=== PATIENT | female | born 2000 | race Caucasian/White ===

== ENCOUNTER 2022-10-07 22:10 | Emergency (ER) | payer OTHER, SELFPAY ==
[2022-10-07 22:24] VITALS: BP 107/66; PULSE 87; RESP 18; TEMP 37.4; O2SAT 97; BMI 34.3
--- NOTE | 2022-10-07 22:56 | PC.NURSE ---
pt presents to [facility] pt states that last week she had a kidney infection and was placed on antibiotics. antibiotics finished and no longer having any urinary symptoms. pt states that over the last 2 days c/o nausea and generalized abdominal pain. pt states she went to [facility] last night and had blood testing done and it was normal and was sent home. pt states pain never went away so she went back this morning they did blood work and ct. ct showed possible colon infection and fluid around ovary so they did an ultrasound and it showed fluid but they weren't able to determine what it was from. pt was given gi cocktail, zofran, and bentyl for symptoms during er visit. pt states she told the doc at [facility] her throat was sore and swollen and was concerned for allergic reaction and was told to take benadryl. sent home with bentyl and zofran but hasn't picked up prescriptions.
--- NOTE | 2022-10-07 23:16 | ED_ITS ---
HPI - Abdominal Pain General Chief Complaint: Abdominal Pain Stated Complaint: ABDOMINAL PAIN, NECK PAIN Time Seen by Provider: 10/07/22 22:57 Source: patient and family Mode of arrival: walk-in Limitations: no limitations History of Present Illness HPI narrative: seen at [facility] yesterday for abdominal pain. Seen twice. States first time she was given GI cocktail. At home felt like her throat was swelling and her legs were itching. [place] she was having an allergic reaction and took benadryl. throat and itcing resolved. Seen again for abdominal pain and CT and pelvis ultrasound performed. CT demonstrated pelvic fluid and US demonstrated normal ovaries and small fluid in the d[place]. advised to follow up with her doctor now presents here for continued abdominal pain and also her neck is sore. States she woke up with sore neck. no fever Related Data Home Medications Medication Instructions Recorded Confirmed dicyclomine 20 mg tablet mg 10/07/22 ondansetron 4 mg disintegrating mg 10/07/22 tablet Allergies Allergy/AdvReac Type Severity Reaction Status Date / Time amoxicillin [From Augmentin] Allergy Unknown Verified 10/07/22 22:24 clavulanic acid Allergy Unknown Verified 10/07/22 22:24 [From Augmentin] doxycycline Allergy Unknown Verified 10/07/22 22:24 Review of Systems ROS Status of ROS 10 or more systems reviewed and unremarkable except as noted in history and below [facility] Social History Smoking status: Current every day smoker Exam Constitutional Vital Signs, click to edit/add: Last Vital Signs Temp 99.3 F 10/07/22 22:24 Pulse 87 10/07/22 22:24 Resp 18 10/07/22 22:24 BP 107/66 10/07/22 22:24 Pulse Ox 97 10/07/22 22:24 O2 Del Method Room Air 10/07/22 22:24 Common normals: no apparent distress, average body habitus, oriented x3, healthy appearing and alert [facility] Common normals: normocephalic and head/scalp atraumatic Other: oral pharynx clear Eye Common normals: PERRL, EOMs intact bilaterally and conjunctivae normal Respiratory Common normals: normal respiratory effort, no retractions, no use of accessory muscles and clear to auscultation bilaterally Cardio Common normals: regular rate, regular rhythm, S1 normal heart sound and S2 normal heart sound GI Common normals: Normal to inspection, nondistended, normoactive bowel sounds present and soft to palpation Other: tender LLQ-no guard Other: normal external exam speculum exam without discharge. very mild cervical motion and mild adnexa tenderness bilat. Extremity Common normals: normal to inspection and full ROM Neuro Common normals: CN's II-XII intact bilaterally, moves all extremities and no focal motor deficits Psych Appearance: grossly normal Course Vital Signs Vital signs: Vital Signs Temperature 99.3 F 10/07/22 22:24 Pulse Rate 87 10/07/22 22:24 Respiratory Rate 18 10/07/22 22:24 Blood Pressure 107/66 10/07/22 22:24 Pulse Oximetry 97 10/07/22 22:24 Oxygen Delivery Method Room Air 10/07/22 22:24 Temperature 99.3 F 10/07/22 22:24 Pulse Rate 87 10/07/22 22:24 Respiratory Rate 18 10/07/22 22:24 Blood Pressure 107/66 10/07/22 22:24 Pulse Oximetry 97 10/07/22 22:24 Oxygen Delivery Method Room Air 10/07/22 22:24 MDM - Abdominal Pain MDM Narrative Medical decision making narrative: patient seen at [facility] yesterday for abdominal pain. continues to have pain and feels like it increased. CT from [place] demonstrated mod volume of free fluid. edematous changes and thickening of the rectum and ascending colon may reflect enteritis. Patient also with muscular neck pain that responded nicely to Norflex IV. Patient advised of the working diagnosis of enteritis. Pelvic cultures sent. she is discharged home with cipro, flagyl and norflex and advised to follow up with her doctor early next week for recheck Lab Data Labs: Lab Results 10/07/22 10/07/22 Range/Units 22:50 23:35 WBC 7.4 (4.0-11.0) 10^3/uL RBC 4.63 (4.20-5.40) 10^6/uL Hgb 13.8 (12.0-16.0) g/dL Hct 40.4 (36.0-48.0) % MCV 87.3 (81.0-99.0) fL MCH 29.8 (26.7-34.0) pg MCHC 34.2 (29.9-35.2) g/dL RDW 12.3 (11.0-15.0) % Plt Count 373 (150-450) 10^3/uL MPV 9.6 (9.5-13.5) fL Neut % (Auto) 60.6 (43.0-75.0) % Lymph % (Auto) 32.7 (20.5-60.0) % [place] % (Auto) 5.4 (1.7-12.0) % Eos % (Auto) 0.9 (0.9-7.0) % Baso % (Auto) 0.3 (0.2-2.0) % Neut # (Auto) 4.5 (1.4-6.5) 10^3/uL Lymph # (Auto) 2.4 (1.2-3.8) 10^3/uL [place] # (Auto) 0.4 (0.3-0.8) 10^3/uL Eos # (Auto) 0.1 (0.0-0.7) 10^3/uL Baso # (Auto) 0.0 (0.0-0.1) 10^3/uL Abs Immat Gran (auto) 0.01 (0.00-0.03) 10^3/uL Imm/Tot Granulo (auto) 0.1 (0.0-0.5) % Sodium 135 L (136-145) mmol/L Potassium 3.7 (3.5-5.1) mmol/L Chloride 101 (98-107) mmol/L Carbon Dioxide 26.7 (21.0-32.0) mmol/L Anion Gap 11.0 BUN 8.0 (7.0-18.0) mg/dL Creatinine 0.78 (0.55-1.02) mg/dL Est GFR ( Amer) >60 (>=60) Est GFR (Non-Af Amer) >60 (>=60) BUN/Creatinine Ratio 10.3 Glucose 103 (74-106) mg/dL Lactate 0.7 (0.4-2.0) mmol/L Calcium 8.0 L (8.5-10.1) mg/dL Total Bilirubin 0.9 (0.2-1.0) mg/dL AST 8 L (15-37) U/L ALT 7 L (14-59) U/L Alkaline Phosphatase 64 (46-116) U/L Total Protein 6.6 (6.4-8.2) g/dL Albumin 3.4 (3.4-5.0) g/dL Globulin 3.2 g/dL Albumin/Globulin Ratio 1.1 Lipase 29.0 L (73.0-393.0) U/L Urine Color Dk. yellow (YELLOW) Urine Clarity Clear (CLEAR) Urine pH 6.5 (5.0-9.0) Ur Specific [place] 1.020 (1.005-1.025) Urine Protein Trace (NEG/TRACE) mg/dL Urine Glucose (UA) Negative (NEGATIVE) mg/dL Urine Ketones Trace A (NEGATIVE) mg/dL Urine Occult Blood Negative (NEGATIVE) Urine Nitrite Negative (NEGATIVE) Urine Bilirubin Small A (NEGATIVE) Urine Urobilinogen 1.0 (0.2-1.0) EU/dL Ur Leukocyte Esterase Negative (NEGATIVE) Discharge Plan Discharge Chief Complaint: Abdominal Pain Clinical Impression: Abdominal pain Patient Disposition: Home, Self-Care Prescriptions / Home Meds: No Action dicyclomine 20 mg tablet ondansetron 4 mg tablet,disintegrating Instructions: Abdominal Pain (ED) Additional Instructions: follow up with your doctor next week for recheck Stand Alone Forms: Portal Instructions Referrals: Physician,Non-Staff, MD [Primary Care Provider] - 1 week
[2022-10-07 23:34] LABS: Bilirubin Urine SMALL (NEGATIVE); Blood Urine NEGATIVE (NEGATIVE); Clarity Urine CLEAR (CLEAR); Color Urine DK. YELLOW (YELLOW); Glucose Urine UA NEGATIVE (NEGATIVE); Ketones Urine TRACE mg/dL (NEGATIVE); Leukocyte Esterase Urine NEGATIVE (NEGATIVE); Nitrite Urine NEGATIVE (NEGATIVE); Protein Urine TRACE mg/dL (NEG/TRACE); pH Urine 6.5 (5.0-9.0)
[2022-10-07 23:35] LABS: Urine Microscopic Indicated NO
[2022-10-07 23:46] LABS: Basophils Percent Auto 0.3 % (0.2-2.0); Eosinophils Absolute Auto 0.1 10^3/uL (0.0-0.7); Eosinophils Percent Auto 0.9 % (0.9-7.0); Hematocrit 40.4 % (36.0-48.0); Hemoglobin 13.8 g/dL (12.0-16.0); Immature Granulocytes Abs Auto 0.01 10^3/uL (0.00-0.03); Immature Granulocytes Pct Auto 0.1 % (0.0-0.5); Lymphocytes Absolute Auto 2.4 10^3/uL (1.2-3.8); Lymphocytes Percent Auto 32.7 % (20.5-60.0); Mean Corpuscular HGB Conc 34.2 g/dL (29.9-35.2); Mean Corpuscular Hemoglobin 29.8 pg (26.7-34.0); Mean Corpuscular Volume 87.3 fL (81.0-99.0); Mean Platelet Volume 9.6 fL (9.5-13.5); Monocytes Absolute Auto 0.4 10^3/uL (0.3-0.8); Monocytes Percent Auto 5.4 % (1.7-12.0); Neutrophils Absolute Auto 4.5 10^3/uL (1.4-6.5); Neutrophils Percent Auto 60.6 % (43.0-75.0); Platelet Count 373 10^3/uL (150-450); Red Blood Count 4.63 10^6/uL (4.20-5.40); Red Cell Distribution Width 12.3 % (11.0-15.0); White Blood Count 7.4 10^3/uL (4.0-11.0)
[2022-10-07 23:58] LABS: Alanine Aminotransferase 7 U/L (14-59); Albumin Globulin Ratio 1.1; Albumin Level 3.4 g/dL (3.4-5.0); Alkaline Phosphatase 64 U/L (46-116); Aspartate Amino Transferase 8 U/L (15-37); BUN Creatinine Ratio 10.3; Bilirubin Total 0.9 mg/dL (0.2-1.0); Carbon Dioxide 26.7 mmol/L (21.0-32.0); Chloride 101 mmol/L (98-107); Estimated GFR (African America >60 (>=60); Estimated GFR (Non-African Ame >60 (>=60); Globulin 3.2 g/dL; Glucose 103 mg/dL (74-106); Potassium 3.7 mmol/L (3.5-5.1); Sodium 135 mmol/L (136-145); Total Protein 6.6 g/dL (6.4-8.2)
[2022-10-07] MEDS: ORPHENADRINE 60 MG/ 2 ML VIAL IV (23:58)
[2022-10-08] LABS: Lactate/Lactic Acid 0.7 mmol/L (0.4-2.0)
[2022-10-08] MEDS: METRONIDAZOLE 250 MG TABLET 500 MG PO (00:26)
[2022-10-08] MEDS: CIPROFLOXACIN HCL 500 MG TABLET PO (00:26)
[2022-10-11 10:09] LABS: Neisseria gonorrhoeae, NAA Negative (Negative)
== END 2022-10-08 00:31 | disposition home or self-care (01) ==
PROVIDERS: Emergency Provider Internal Medicine
DX: R10.9 Unspecified abdominal pain (principal); F17.210 Nicotine dependence, cigarettes, uncomplicated
CPT/HCPCS: 36415; 80053; 81003; 83605; 83690; 85025; 87210; 87491; 87591; 96374; 99284

== ENCOUNTER 2023-09-16 17:51 | Emergency (ER) | payer OTHER, SELFPAY ==
[2023-09-16 17:56] VITALS: BP 117/68; PULSE 60; TEMP 37.1; O2SAT 99; BMI 30.9
--- NOTE | 2023-09-16 18:16 | ED.GENADUL1 ---
HPI HPI - General Adult General Chief complaint: Recheck/Abnormal Lab/Rx Stated complaint: Post Operative Complications Time Seen by Provider: 09/16/23 17:58 Source: patient Mode of arrival: walk-in Limitations: no limitations History of Present Illness HPI narrative: 23-year-old female to the emergency department chief complaint of wound reevaluation. Patient reports that 4 weeks ago she had a at [facility]. She has seen her IT INSTRUCTOR twice for wound checks and was told everything is healing well. Family member thought her wound looked infected today and referred her to the emergency department. She reports that the middle part still has an area that does not look like it healed all the way. She denies any discharge, redness, warmth, swelling, fevers, sweats, chills. Related Data Home Medications ?Medication ?Instructions ?Recorded ?Confirmed ferrous sulfate 325 mg (65 mg mg 09/16/23 iron) tablet ibuprofen 800 mg tablet mg 09/16/23 Allergies Allergy/AdvReac Type Severity Reaction Status Date / Time amoxicillin [From Augmentin] Allergy Unknown Hives Verified 09/16/23 18:02 clavulanic acid Allergy Unknown Hives Verified 09/16/23 18:02 [From Augmentin] doxycycline Allergy Unknown Hives Verified 09/16/23 18:02 ondansetron [From Zofran] AdvReac Mild Hives Verified 09/16/23 18:02 Sulfa (Sulfonamide AdvReac Mild hives Verified 09/16/23 18:02 Antibiotics) Opioid HPI Opioid Management Most Recent Opioid Data: No Data to Display Review of Systems ROS Status of ROS 10 or more systems reviewed and unremarkable except as noted in history and below [facility] Social History Smoking status: Current every day smoker Exam Narrative Exam Narrative: VITALS: I have reviewed the triage vital signs. GENERAL: Well developed, well appearing adult in no acute distress. NEURO: Alert and oriented. Moves all extremities. Face is symmetric and expressive. EYES: PERRL. No scleral icterus or conjunctival injection. No discharge. HENT: Normocephalic, atraumatic. Hearing is grossly intact. Nares grossly patent and without discharge. Mucous membranes moist. NECK: No JVD. Patient moves neck without restriction. GI/: Abdomen is soft and non-tender. Normoactive bowel sounds. . Low horizontal incision without erythema, warmth, discharge. There is a approximately 2 cm area centrally on the incision with imperfect apposition of the tissues at the top layer. There is no dehiscence of the wound. EXTREMITIES: Symmetric muscle bulk. No joint swelling. No clubbing, cyanosis, or deformity. SKIN: Warm and dry. Normal turgor. No rash or lesions appreciated. PSYCH: Mood, affect, and interaction is appropriate to the setting. Constitutional Vital Signs, click to edit/add: Last Vital Signs Temp 98.7 F 09/16/23 17:56 Pulse 60 09/16/23 17:56 Resp 18 09/16/23 17:56 BP 117/68 09/16/23 17:56 Pulse Ox 99 09/16/23 17:56 O2 Del Method Room Air 09/16/23 17:56 Course Vital Signs Vital signs: Vital Signs Temperature 98.7 F 09/16/23 17:56 Pulse Rate 60 09/16/23 17:56 Respiratory Rate 18 09/16/23 17:56 Blood Pressure 117/68 09/16/23 17:56 Pulse Oximetry 99 09/16/23 17:56 Oxygen Delivery Method Room Air 09/16/23 17:56 Temperature 98.7 F 09/16/23 17:56 Pulse Rate 60 09/16/23 17:56 Respiratory Rate 18 09/16/23 17:56 Blood Pressure 117/68 09/16/23 17:56 Pulse Oximetry 99 09/16/23 17:56 Oxygen Delivery Method Room Air 09/16/23 17:56 Medical Decision Making MDM Narrative Medical decision making narrative: Wound is healing well. There is no signs of infection. Will refer her back to her IT INSTRUCTOR for continued surveillance and monitoring of wound healing. Discharge Plan Discharge Stand Alone Forms: Portal Instructions Chief Complaint: Recheck/Abnormal Lab/Rx Clinical Impression: Visit for wound check Patient Disposition: Home, Self-Care Time of Disposition Decision: 18:14 Condition: Good Mode of Transportation: Private Vehicle Prescriptions / Home Meds: No Action ibuprofen 800 mg tablet ferrous sulfate 325 mg (65 mg iron) tablet Print Language: Citizen [place] Additional Instructions: Call the office of your IT INSTRUCTOR and arrange to be seen in the next 2 to 3 days for repeat wound evaluation. Return to the ED with purulent discharge, redness, warmth, fever, chills. Keep wound clean and dry. Referrals: CHANDLER ALEXANDER [Primary Care Provider] - 1 week
== END 2023-09-16 18:21 | disposition home or self-care (01) ==
PROVIDERS: Emergency Provider Student in an Organized Health Care Education/Training Program; PCP Internal Medicine
DX: Z39.2 Encounter for routine postpartum follow-up (principal)
CPT/HCPCS: 99282